=== PATIENT | male | born 1940 | race Caucasian/White ===

== ENCOUNTER 2019-02-19 05:59 | Inpatient (IN) | payer MEDICARE ==
[2019-02-19] MEDS ORDERED: Sodium Chloride 0.9% 10 ML ONE (06:25)
[2019-02-19] MEDS ORDERED: Fentanyl 100 MCG/2 ML VIAL ONE ×3 (06:31→13:06)
[2019-02-19 06:50] LABS: Hemoglobin 11.9 g/dL (14.0-18.0); Mean Corpuscular HGB CONC 34.4 g/dL (32.0-36.0); Mean Corpuscular Hemoglobin 31.9 pg (27.0-31.0); Mean Corpuscular Volume 92.8 fL (78.0-98.0); Mean Platelet Volume 6.8 fL (7.4-10.4); Platelet Count 217 thou/uL (130-400); RBC Distribution Width 14.7 % (11.5-14.5); Red Blood Cell (RBC) Count 3.74 mill/uL (4.70-6.10); White Blood Cell (WBC) Count 6.2 thou/uL (4.8-10.8)
[2019-02-19 07:12] LABS: Anion Gap 11 mmol/L (10-20); BUN (Urea Nitrogen) 19 mg/dL (8.4-25.7); Calc. Creatinine Clearance 69 mL/min (70-130); Calcium 8.9 mg/dL (7.8-10.44); Carbon Dioxide 25 mmol/L (23-31); Chloride 107 mmol/L (98-107); Estimated GFR-MDRD 69; Glucose 95 mg/dL (83-110); Potassium 3.9 mmol/L (3.5-5.1); Sodium 139 mmol/L (136-145)
[2019-02-19] MEDS ORDERED: HYDROmorphone 2 MG/ML VIAL ONE (08:45)
[2019-02-19] MEDS ORDERED: Morphine Sulfate 2 MG/ML SYRINGE SLOW IVP PRN (08:50)
[2019-02-19] MEDS ORDERED: Ketorolac Tromethamine 30 MG/ML VIAL IVP PRN (08:50)
[2019-02-19] MEDS ORDERED: Ondansetron HCl/PF 4 MG/2 ML Vial IVP PRN (08:50)
[2019-02-19] MEDS ORDERED: HYDROmorphone 2 MG/ML VIAL SLOW IVP PRN (08:50)
[2019-02-19] MEDS ORDERED: PACU-Morphine 4MG/ML VIAL SLOW IVP PRN (08:50)
[2019-02-19] MEDS ORDERED: Promethazine HCl 25 MG/ML VIAL SLOW IVP PRN (08:50)
[2019-02-19] MEDS ORDERED: Meperidine HCl/PF 25 MG/ML VIAL SLOW IVP PRN (08:50)
[2019-02-19] MEDS ORDERED: Promethazine HCl 25 MG/ML VIAL IM PRN ×2 (08:50→09:09)
[2019-02-19] MEDS ORDERED: Milk Of Magnesia 30 ML UDCUP PO PRN (09:09)
[2019-02-19] MEDS ORDERED: Mag-Al 1200 mg/1200 mg/30 ML UDCUP PO PRN (09:09)
[2019-02-19] MEDS ORDERED: tiZANidine HCl 4 MG TAB PO PRN (09:09)
[2019-02-19] MEDS ORDERED: Promethazine HCl 12.5 MG SUPP PR PRN (09:09)
[2019-02-19] MEDS ORDERED: Promethazine 25 MG TAB PO PRN (09:09)
[2019-02-19] MEDS ORDERED: HYDROcodone/Acetaminophen 10/325 mg Tablet PO PRN (09:09)
[2019-02-19] MEDS ORDERED: Morphine 4 MG/ML VIAL SLOW IVP PRN (09:09)
[2019-02-19] MEDS ORDERED: diphenhydrAMINE 25 MG CAP PO PRN (09:09)
[2019-02-19] MEDS ORDERED: traMADol HCl 50 MG TAB PO PRN ×2 (09:09)
[2019-02-19] MEDS ORDERED: diphenhydrAMINE 50 MG/ML VIAL IVP PRN (09:09)
[2019-02-19] MEDS ORDERED: Morphine 2 MG/ML SYRINGE SLOW IVP PRN (09:10)
[2019-02-19] MEDS ORDERED: Ondansetron PF 4 MG/2 ML Vial IVP PRN (09:11)
[2019-02-19] MEDS ORDERED: HYDROcodone/Acetaminophen 10/325 mg Tablet ONE (13:52)
[2019-02-19] MEDS: HYDROcodone/Acetaminophen 10/325 mg Tablet PO PRN ×2 (13:57→18:09)
--- NOTE | 2019-02-19 13:57 | OP ---
DATE OF PROCEDURE: 02/19/2019 ADJUSTER PIANO ACTION: Fatou Cao PA-C PROCEDURE PERFORMED: L4-L5 laminectomy, posterolateral arthrodesis, pedicle screw instrumentation L4-L5, demineralized bone matrix, local morselized autograft. DESCRIPTION OF PROCEDURE: The patient was brought to the operating room and intubated. He was rolled in a prone position on gel-filled chest rolls. An incision was made exposing L4 and L5 bilaterally and the level was confirmed by x-ray. We performed complete L5 and inferior L4 laminectomy was completed decompressing the neural elements. We then placed pedicle screws at right L4 and right L5 using lateral fluoroscopic guidance. The robert was secured between the screws, connected by nuts, which were final tightened. The wound was then extensively irrigated and maximum hemostasis was secured. A combination of demineralized bone matrix and local morselized autograft was laid over the left lamina and posterolateral surfaces for the purpose of arthrodesis. Vancomycin powder was applied and the wound was then closed in anatomic layers. Job ID: [id number]
[2019-02-19] MEDS: CEFAZOLIN 2 GM in Premix Bag 1 BAG IVPB SCH ×2 (13:58→21:43)
[2019-02-19] MEDS ORDERED: Rocuronium Bromide 10 MG/ML (10ML VIAL) ONE (14:33)
[2019-02-19] MEDS ORDERED: Glycopyrrolate 0.2 MG/ML 5 ML SYRINGE ONE (14:33)
[2019-02-19] MEDS ORDERED: PROPOFOL 200 MG/20 ML VIAL ONE (14:33)
[2019-02-19] MEDS ORDERED: Lidocaine 1% PF 5 ML VIAL ONE (14:33)
[2019-02-19] MEDS ORDERED: Ondansetron PF 4 MG/2 ML Vial ONE (14:33)
[2019-02-19] MEDS ORDERED: Dexamethasone 20 MG/5 ML VIAL ONE (14:33)
[2019-02-19] MEDS ORDERED: ePHEDrine 50 MG/ML VIAL ONE (14:33)
[2019-02-19 15:25] VITALS: BMI 27.8
[2019-02-19] MEDS: Sodium Chloride 0.9% 1,000 ML IV SCH ×2 (16:18→22:01)
--- NOTE | 2019-02-19 18:02 | PRG ---
DATE OF SERVICE: 02/19/2019 SUBJECTIVE: Mr. Canales is a pleasant 78-year-old male with past medical history significant for previous CO, hypertension, BPH, and chronic low back pain, who presented to the hospital today for elective L4-L5 laminectomy with Dr. Pederson. The Hospitalist service is being consulted for further medical management of this patient. The patient did indeed undergo successful L4-L5 laminectomy this morning with Dr. Pederson. He was seen postoperatively on the floor in his hospital room. He is resting quite comfortably. His postoperative pain is well under control at this time. He denies any chest pain or shortness of breath. He has no palpitations. He is using his incentive spirometry as instructed. He has no nausea. No complaints at this time. OBJECTIVE: VITAL SIGNS: Blood pressure 164/73, pulse 85, O2 saturation is 97% on room air, temperature 98.2. PHYSICAL EXAMINATION: GENERAL: The patient is a well-appearing male, in no acute distress. HEENT: Head is atraumatic and normocephalic. Mucous membranes are moist. NECK: Supple. No lymphadenopathy. No JVD. No carotid bruits. Trachea is midline. CV: S1 and S2. Regular rate and rhythm. No appreciable murmurs, rubs, or gallops. LUNGS: Regular respiratory rate and pattern. Clear to auscultation bilaterally. ABDOMEN: Positive bowel sounds. Soft and nontender. No masses. SKIN: Warm and dry. EXTREMITIES: No lower extremity pitting edema. NEUROLOGIC: Cranial nerves 2 through 12 are grossly intact. The patient is nonfocal. LABORATORY DATA: White blood cell count 6.2, hemoglobin 11.9, hematocrit 34.7, platelet count is 217. Sodium 139, potassium 3.9, chloride 107, anion gap 11, BUN 19, creatinine 1.04, glucose 95. ASSESSMENT: 1. Status post L4-L5 laminectomy, posterolateral arthrodesis, pedicle screw instrumentation L4-L5, demineralized bone matrix, local morselized autograft with Dr. Pederson this morning. 2. History of previous myocardial infarction, unknown type, although suspect thromboembolic per patient history and the fact the patient is currently on Xarelto as home medication. 3. Hypertension. 4. Benign prostatic hypertrophy. PLAN: At this time, continue pain management per Dr. Pederson's team. The patient's pain is well controlled at this time. The patient is moderately hypertensive, and we will go ahead and reinstate his antihypertensive regimen, continue to monitor his vital signs closely. Regarding his blood thinner, the patient does have instructions per Dr. Pederson of when he can start that medication postoperatively. We will continue to follow this patient throughout his hospitalization. The care and management of this patient have been discussed with Dr. Henderson, who agrees with the above. Job ID: [id number]
[2019-02-19] MEDS ORDERED: Terazosin HCl 5 MG CAP PO SCH (21:00)
[2019-02-19] MEDS ORDERED: Prevnar 13-Val Conj/PF 0.5 ML SYRINGE IM ONE (21:00)
[2019-02-19] MEDS ORDERED: Atorvastatin Calcium 40 MG TAB PO SCH (21:00)
[2019-02-19] MEDS: Metoprolol Tartrate 25 MG TAB PO SCH (21:42)
[2019-02-19] MEDS: Lisinopril 10 MG TAB PO SCH (21:42)
[2019-02-20] MEDS: Lisinopril 10 MG TAB PO SCH (08:24)
[2019-02-20] MEDS: Metoprolol Tartrate 25 MG TAB PO SCH (08:25)
[2019-02-20] MEDS: HYDROcodone/Acetaminophen 10/325 mg Tablet PO PRN (08:32)
[2019-02-20] MEDS: Sodium Chloride 0.9% 1,000 ML IV SCH (10:47)
[2019-02-20 11:10] VITALS: BP 101/62; TEMP 98.3
--- NOTE | 2019-02-20 11:20 | DIS ---
DATE OF ADMISSION: 02/19/2019 DATE OF DISCHARGE: 02/20/2019 HOSPITAL COURSE: The patient is a 78-year-old male, who is status post L4-L5 decompression and fusion. Following the surgery, he was transitioned to the Med/Surg floor, where his pain has been well controlled with p.o. medications. He did not require any pain medication overnight until this morning at 8:00 a.m. He is tolerating a regular diet. He is voiding appropriately. He has been up ambulating back and forth to the bathroom easily with his cane. On exam this morning, the patient is awake, alert, in no acute distress. He has free active range of motion of all extremities. He has no focal motor weakness or reflex asymmetry. There is a small amount of shadowing on the dressing. I removed this and there appears to be no active incisional drainage. We will plan to dismiss the patient to home. I have discussed home care precautions and will follow up in 2 weeks. Job ID: [id number]
== END 2019-02-20 11:34 | disposition home or self-care (01) | DRG 460 ==
LOC: SURG A 05:59
PROVIDERS: ADMIT Neurological Surgery; ATTEND Neurological Surgery
PROC: 0SG00AJ Fusion of Lumbar Vertebral Joint with Interbody Fusion Device, Posterior Approach, Anterior Column, Open Approach (ICD-10-PCS; principal; 2019-02-19)
PROC: 0SB20ZZ Excision of Lumbar Vertebral Disc, Open Approach (ICD-10-PCS; 2019-02-19)
DX: M48.062 Spinal stenosis, lumbar region with neurogenic claudication (principal); I10 Essential (primary) hypertension; E78.5 Hyperlipidemia, unspecified; N40.0 Benign prostatic hyperplasia without lower urinary tract symptoms; I25.2 Old myocardial infarction; Z79.01 Long term (current) use of anticoagulants; Z79.899 Other long term (current) drug therapy
CPT/HCPCS: 76000; 80048; 85027; 90471; 90670; 93005; 93010; C1713; C1768; G0009; J0690; J1100; J1170; J2001; J2405; J2704; J3010; J3370; J3490

== ENCOUNTER 2019-03-06 10:51 | Outpatient (CLI) | payer MEDICARE ==
--- NOTE | 2019-03-06 12:35 | RAD ---
LUMBAR SPINE TWO VIEWS: HISTORY: Lumbar stenosis. Follow up surgery. FINDINGS: Postop laminectomy changes and right-sided pedicle screw placement changes at L4-L5 with mild anterol isthesis of L4 and L5. Generalized disk osteophytosis and facet arthrosis. IMPRESSION: 1. Postoperative changes at L4-L5. 2. No old prior studies. POS: OFF
== END 2019-03-06 10:52 | disposition home or self-care (01) ==
LOC: TBSIIMAG 10:51
PROVIDERS: ATTEND Neurological Surgery
DX: M48.061 Spinal stenosis, lumbar region without neurogenic claudication (principal); Z98.890 Other specified postprocedural states
CPT/HCPCS: 72100